=== PATIENT | female | born 1995 | race Hispanic/Latino ===

== ENCOUNTER 2018-07-14 19:37 | Emergency (ER) | payer MEDICAID ==
[2018-07-14 20:18] LABS: BASOPHILS % (AUTO) 0.9 % (0.0-5.0); EOSINOPHILS % (AUTO) 0.9 % (0.0-8.0); HEMATOCRIT 36.1 % (36-48); MEAN CORPUSCULAR HEMOGLOBIN 23.4 pg (27.0-33.0); MEAN CORPUSCULAR HGB CONC 31.2 g/dL (32.0-36.0); MEAN CORPUSCULAR VOLUME 75.2 fL (80-100); MONOCYTES % (AUTO) 8.6 % (3.0-13.0); NEUTROPHILS % (AUTO) 48.6 % (40.0-77.0); NUCLEATED RED BLOOD CELLS 0.1 % (0.0-0.19); PLATELET COUNT (AUTO) 203 K/uL (130-400)
[2018-07-14 20:29] LABS: CREATININE 0.8 mg/dL (0.5-1.5); POTASSIUM 3.7 mmol/L (3.5-5.1)
[2018-07-14 20:34] LABS: ALBUMIN 3.4 g/dL (3.5-5.0); BILIRUBIN,DIRECT 0.1 mg/dL (0.0-0.3); BILIRUBIN,TOTAL 0.4 mg/dL (0.2-1.0); TOTAL PROTEIN, SERUM 7.8 g/dL (6.0-8.3)
[2018-07-14 20:59] LABS: HCG,QUAL RESULT NEGATIVE (NEGATIVE)
[2018-07-14 21:02] LABS: APPEARANCE,URINE Clear (CLEAR); BILIRUBIN,URINE Negative (NEGATIVE); COLOR,URINE Yellow (YELLOW); GLUCOSE, URINE (UA) Negative (NEGATIVE); KETONES,URINE Negative (NEGATIVE); LEUKOCYTE ESTERASE ,URINE Small (NEGATIVE); NITRATE,URINE Negative (NEGATIVE); OCCULT BLOOD,URINE Negative (NEGATIVE); PROTEIN,URINE Negative (NEGATIVE)
[2018-07-14 21:04] LABS: BACTERIA,URINE Few /HPF (None Seen); RBC,URINE None Seen /HPF (0-1)
[2018-07-14 21:06] LABS: AMPHET/METH SCREEN,URINE NEGATIVE (NEGATIVE); BARBITURATE SCREEN, URINE NEGATIVE (NEGATIVE); BENZODIAZEPINES SCREEN,URINE NEGATIVE (NEGATIVE); CANNABINOID SCREEN,URINE NEGATIVE (NEGATIVE); COCAINE SCREEN,URINE NEGATIVE (NEGATIVE); OPIATE SCREEN,URINE NEGATIVE (NEGATIVE); PHENCYCLIDINE SCREEN,URINE NEGATIVE (NEGATIVE)
[2018-07-14] MEDS ORDERED: CEFTRIAXONE SODIUM 1 GM ONE (22:42)
[2018-07-14] MEDS ORDERED: ONDANSETRON ODT 4 MG TAB ONE (22:43)
[2018-07-14] MEDS ORDERED: AZITHROMYCIN 250 MG TABLET PO ONE (22:43)
[2018-07-14] MEDS ORDERED: LIDOCAINE HCL-MPF 1% 2ML VIAL ONE (22:43)
== END 2018-07-14 23:30 | disposition home or self-care (01) ==
LOC: EDH 19:37
DX: R10.2 Pelvic and perineal pain (principal); R30.0 Dysuria
CPT/HCPCS: 36415; 80048; 80076; 80305; 81001; 81025; 83690; 84702; 85025; 87486; 87797; 96372; 99283; J0696; J3490

== ENCOUNTER 2021-11-26 20:35 | Emergency (ER) | payer MEDICAID ==
[~2021-11-26] VITALS: Ht 170.2 cm; Wt 63.5 kg
[2021-11-26 20:44] VITALS: BP 107/73
[2021-11-26] MEDS ORDERED: LORA10TA7 PO (23:09)
[2021-11-26] MEDS ORDERED: FLUT16H NASAL (23:09)
[2021-11-26] MEDS ORDERED: AZIT1PAC7 PO (23:09)
== END 2021-11-26 23:19 | disposition home or self-care (01) ==
LOC: EDH 20:35
DX: J30.9 Allergic rhinitis, unspecified (principal); Z20.822 Contact with and (suspected) exposure to COVID-19; Z88.0 Allergy status to penicillin
CPT/HCPCS: 87635; 87804 ×2; 87880; 99283; C9803